=== PATIENT | male | born 1985 | race Two or more races ===

== ENCOUNTER → 2016-06-23 | Outpatient (CLI) | payer OTHER ==
--- NOTE | ~2016-06-23 | MR93 ---
[facility] A Service of [facility] RADIOLOGY TEXT RESULTS PATIENT: CARMINA DEWEY LOCATION: [facility] : 85 UNIT #: [id number] AGE: [address]: Dale Jacobo MD SEX: M ORDER DR: [id number] [place], [place] [address] [id number] O MR#: [id number] Acc #: [id number] NAME: CARMINA DEWEY : 1985 SEX: M STUDY DATE/TIME: 06/23/2016 9:10 UNIT: [facility] ROOM: STUDY DESCRIPTION: MR IAC Only WWo Contrast Attending Physician: Dale Jacobo M.D. Referring Physician: Dale Jacobo M.D. Ordering Physician: Dale Jacobo M.D. Primary Care Physician: No Primary Care Physician MRI CENTER REPORT This report is preliminary unless electronic signature is present. EXAM IAC MRI with and without contrast. DATE OF STUDY 06/23/2016 PROCEDURE Routine IAC MRI with and without contrast. COMPARISON Head CT dated 04/14/2016. CLINICAL HISTORY Right sensorineural hearing loss and tinnitus for about 1 year. FINDINGS The study is mildly motion degraded. Allowing for this, no mass or abnormal signal or enhancement is seen in either IAC, labyrinth, CP-angle cistern, or in the brainstem. IMPRESSION Normal IAC MRI with and without contrast. Dictated by... Cody Caballero M.D. THIS IS AN ELECTRONICALLY VERIFIED REPORT Cody Caballero M.D. at 06/23/2016 4:57 PM TEV/jt [facility] A Service [facility] RADIOLOGY TEXT RESULTS PATIENT: CARMINA DEWEY LOCATION: [facility] : 85 UNIT #: [id number] AGE: [address]: Dale Jacobo MD SEX: M ORDER DR: TD: 06/23/2016 16:15 JOB #: [id number] MRI CENTER REPORT Page 1 of 1 COPY
== END | disposition home or self-care (01) ==
LOC: CMRI 08:16
DX: H90.41 Sensorineural hearing loss, unilateral, right ear, with unrestricted hearing on the contralateral side (principal)
CPT/HCPCS: 70553; A9577